=== PATIENT | female | born 1990 | race Two or more races ===

== ENCOUNTER 2019-02-07 17:26 | Emergency (ER) | payer MEDICAID ==
[~2019-02-07] VITALS: Ht 160 cm; Wt 63.0 kg
--- NOTE | 2019-02-07 17:32 | NUR ---
CAME IN FOR VAGINAL BLEEDING X 5 DAYS, ALSO C/O RLQ ABDOMINAL AND BLE PAIN. TO ER BED 16, HOOKED TO MONITOR, [facility], AWAITING MD LOPES
--- NOTE | 2019-02-07 17:42 | NUR ---
DENICE BARAHONA AT BEDSIDE
--- NOTE | 2019-02-07 17:48 | NUR ---
URINE SAMPLE SENT TO LAB
[2019-02-07 18:01] LABS: APPEARANCE,URINE Clear (CLEAR); BILIRUBIN,URINE Negative (NEGATIVE); BLOOD, URINE Large Ery/uL (NEGATIVE); COLOR,URINE Yellow (YELLOW); KETONES,URINE Negative (NEGATIVE); LEUKOCYTE ESTERASE ,URINE Negative (NEGATIVE); NITRITE, URINE Negative (NEGATIVE); PROTEIN,URINE Trace mg/dl (NEGATIVE); UGLUCOSE Negative (NEGATIVE); UROBILINOGEN,URINE 0.2 EU/dL (0.2)
[2019-02-07 18:17] LABS: BACTERIA,URINE Rare /HPF (None Seen); SQUAMOUS EPITHELIAL CELL,UR Few /HPF (None Seen); WBC,URINE 0-2 /HPF (0-3)
--- NOTE | 2019-02-07 19:06 | NUR ---
US TECH AT BEDSIDE
--- NOTE | 2019-02-07 19:26 | NUR ---
CLARIBEL DONE. AWAITING RESULT.
--- NOTE | 2019-02-07 19:27 | NUR ---
REPORT GIVEN TO ED RN FOR MERON
--- NOTE | 2019-02-07 20:07 | NUR ---
Patient discharged to home in stable condition. Written and verbal after care instructions given. Patient verbalizes understanding of instruction.
[2019-02-07 20:08] VITALS: BP 119/63
== END 2019-02-07 20:09 | disposition home or self-care (01) ==
LOC: ER 17:28
DX: K59.00 Constipation, unspecified (principal); N92.6 Irregular menstruation, unspecified; N93.9 Abnormal uterine and vaginal bleeding, unspecified; Z90.89 Acquired absence of other organs
CPT/HCPCS: 74018; 76856-TC; 81000-TC; 84703-TC